=== PATIENT | female | born 1945 | race African-American/Black ===

== ENCOUNTER 2017-01-08 12:45 | Emergency (ER) | payer MEDICARE ==
[2017-01-08 14:17] LABS: Hematocrit 37.8 % (36.0-47.0); Mean Platelet Volume 8.5 fL (7.4-10.4); Red Blood Cell (RBC) Count 3.31 mill/uL (4.20-5.40); White Blood Cell (WBC) Count 3.1 thou/uL (4.8-10.8)
[2017-01-08 14:34] LABS: ALT (SGPT) 17 U/L (8-55); AST (SGOT) 29 U/L (5-34); Alkaline Phosphatase 75 U/L (40-150); Anion Gap 13 mmol/L (10-20); BUN (Urea Nitrogen) 10 mg/dL (9.8-20.1); Bilirubin, Total 0.5 mg/dL (0.2-1.2); Calc. Creatinine Clearance 0 mL/min (70-130); Calcium 9.9 mg/dL (7.8-10.44); Carbon Dioxide 31 mmol/L (23-31); Chloride 103 mmol/L (98-107); Estimated GFR-MDRD Greater than 90; Globulin 3.6 g/dL (2.4-3.5); Lipase 40 U/L (8-78); Protein, Total 7.7 g/dL (6.0-8.3)
[2017-01-08 14:35] LABS: #Lymphocytes 1.4 thou/uL (1.20-3.40); #Monocytes 0.2 thou/uL (0.11-0.59); #Neutrophils 1.5 thou/uL (1.40-6.50); %Basophils 0.1 % (0.0-1.0); %Eosinophils 0.2 % (0.0-10.0); %Lymphocytes 44.4 % (21.0-51.0); %Monocytes 6.7 % (0.0-10.0)
[2017-01-08 14:36] LABS: Macrocytosis SLIGHT = 6-15 cells (100X) (0-5/hpf)
[2017-01-08] MEDS ORDERED: Ondansetron ODT 4 MG TAB ONE (14:36)
[2017-01-08 14:38] LABS: Troponin I Less than 0.010 ng/mL (< 0.028)
[2017-01-08 14:54] LABS: Bilirubin Negative (Negative); Blood, Urine Negative (Negative); Glucose, Urine (Dipstick) Negative (Negative); Ketone, Urine Negative (Negative); Nitrite Negative (Negative); Protein, Urine (Dipstick) Negative (Neg-Trace); Urobilinogen 0.2 mg/dL (0.2-1.0)
--- NOTE | 2017-01-08 16:18 | CT ---
CT ABDOMEN AND PELVIS 01/08/17 HISTORY: Abdominal pain. PO contrast was given. IV contrast was not given. Contrast enhanced CT images of abdomen and pelvis after the administration of oral contrast was given. Comparison made to previous exam from 02/05/16. The patient is complaining of diffuse abdominal pain. The lung bases are un remarkable. No evidence of free intraperitoneal air seen. The liver and spleen demonstrate no definite evidence of abnormalities. The exam is limited due to the fact that IV contrast was not given. A small hiatal hernia is seen. Left adrenal enlargement is again seen unchanged since the previous comparison CT. The right adrenal gland is unremarkable. The kidneys are unremarkable. The abdominal aorta is unremarkable. Pelvic surgical clips seen surrounding the right and left iliac arteries. Some moderately dilated loops of small bowel are seen but no definite evidence of high grade obstruc tion. Some air fluid level seen in the small bowel. A large amount of stool is seen in the colon wit h contrast going all the way to the terminal ileum and ileocecal valve region. Could this patient heard ve a partial functional obstruction due to the large amount of stool in the colon? Multilevel lumbar degenerative changes also seen. IMPRESSION: 1. Large amount of stool in the colon with some mild to moderate small bowel dilatation and cipriano e air fluid levels seen in the small bowel. 2. Left adrenal lesion. 3. Hiatal hernia. 4. Multilevel lumbar degenerative changes. POS: [facility]
[2017-01-08] MEDS ORDERED: Lidocaine Viscous Sol 2% 15 ml UD Cup ONE (17:47)
[2017-01-08] MEDS ORDERED: Fleet Enema 133 ML BOT FS SCH (18:15)
== END 2017-01-08 19:10 | disposition home or self-care (01) ==
LOC: ERS 12:45
DX: K59.00 Constipation, unspecified (principal); I11.0 Hypertensive heart disease with heart failure; I50.9 Heart failure, unspecified; E11.9 Type 2 diabetes mellitus without complications; E78.5 Hyperlipidemia, unspecified; Z85.42 Personal history of malignant neoplasm of other parts of uterus; F41.9 Anxiety disorder, unspecified; Z79.82 Long term (current) use of aspirin; Z79.899 Other long term (current) drug therapy
CPT/HCPCS: 74176; 80053; 81003; 82553; 83605; 83690; 84484; 85025; 87086; 93005; Q0162

== ENCOUNTER 2017-04-17 11:52 | Emergency (ER) | payer MEDICARE ==
[2017-04-17 12:47] LABS: PTT 28.5 SEC (22.9-36.1); Prothrombin Time 13.7 SEC (12.0-14.7)
[2017-04-17 12:49] LABS: Hemoglobin 11.4 g/dL (12.0-16.0); Mean Corpuscular HGB CONC 33.1 g/dL (32.0-36.0); Mean Corpuscular Hemoglobin 36.3 pg (27.0-31.0); Mean Platelet Volume 8.3 fL (7.4-10.4); Platelet Count 173 thou/uL (130-400); RBC Distribution Width 12.9 % (11.5-14.5); Red Blood Cell (RBC) Count 3.15 mill/uL (4.20-5.40); White Blood Cell (WBC) Count 3.2 thou/uL (4.8-10.8)
[2017-04-17 12:57] LABS: ALT (SGPT) 22 U/L (8-55); AST (SGOT) 32 U/L (5-34); Albumin 4.1 g/dL (3.4-4.8); Alkaline Phosphatase 68 U/L (40-150); Anion Gap 12 mmol/L (10-20); BUN (Urea Nitrogen) 11 mg/dL (9.8-20.1); Bilirubin, Total 0.3 mg/dL (0.2-1.2); Calc. Creatinine Clearance 0 mL/min (70-130); Calcium 10.1 mg/dL (7.8-10.44); Carbon Dioxide 30 mmol/L (23-31); Chloride 105 mmol/L (98-107); Estimated GFR-MDRD 87; Globulin 3.4 g/dL (2.4-3.5); Glucose 113 mg/dL (83-110); Potassium 3.7 mmol/L (3.5-5.1); Protein, Total 7.5 g/dL (6.0-8.3); Sodium 143 mmol/L (136-145)
[2017-04-17 13:05] LABS: Lymphocytes 56 % (21-51); MDiff Complete? YES; Macrocytosis SLIGHT = 6-15 cells (100X) (0-5/hpf); Monocytes 7 % (0-10); Neutrophil 37 % (42-75); PLT Morphology Comment Appears Adequate; Polychromasia SLIGHT = 2-3 cells (100X) (0-2/hpf)
== END 2017-04-17 13:41 | disposition home or self-care (01) ==
LOC: SCSER 11:52
DX: R04.0 Epistaxis (principal); I11.0 Hypertensive heart disease with heart failure; I50.9 Heart failure, unspecified; E11.9 Type 2 diabetes mellitus without complications; E78.5 Hyperlipidemia, unspecified; F41.9 Anxiety disorder, unspecified; Z79.82 Long term (current) use of aspirin; Z85.42 Personal history of malignant neoplasm of other parts of uterus; Z79.899 Other long term (current) drug therapy
CPT/HCPCS: 36415; 80053; 85025; 85610; 85730; 99283

== ENCOUNTER 2017-09-27 11:12 | Emergency (ER) | payer MEDICARE ==
[2017-09-27 12:09] LABS: Troponin I Less than 0.010 ng/mL (< 0.028)
[2017-09-27 12:24] LABS: ALT (SGPT) 17 U/L (8-55); AST (SGOT) 36 U/L (5-34); Albumin 4.3 g/dL (3.4-4.8); Alkaline Phosphatase 68 U/L (40-150); Anion Gap 15 mmol/L (10-20); BUN (Urea Nitrogen) 14 mg/dL (9.8-20.1); Bilirubin, Total 0.5 mg/dL (0.2-1.2); CK (CPK) 183 U/L (29-168); Calc. Creatinine Clearance 0 mL/min (70-130); Calcium 10.2 mg/dL (7.8-10.44); Carbon Dioxide 26 mmol/L (23-31); Chloride 103 mmol/L (98-107); Estimated GFR-MDRD 85; Globulin 3.4 g/dL (2.4-3.5); Glucose 158 mg/dL (83-110); Lipase 51 U/L (8-78); Potassium 3.8 mmol/L (3.5-5.1); Protein, Total 7.7 g/dL (6.0-8.3); Sodium 140 mmol/L (136-145)
[2017-09-27 12:28] LABS: #Lymphocytes 1.4 thou/uL (1.20-3.40); #Monocytes 0.2 thou/uL (0.11-0.59); #Neutrophils 1.6 thou/uL (1.40-6.50); %Basophils 0.9 % (0.0-1.0); %Eosinophils 0.5 % (0.0-10.0); %Lymphocytes 41.6 % (21.0-51.0); %Monocytes 7.3 % (0.0-10.0); %Neutrophils 49.8 % (42.0-75.0); Hemoglobin 11.8 g/dL (12.0-16.0); MDiff Complete? YES; Macrocytosis MODERATE=16-30 cells (100X) (0-5/hpf); Mean Corpuscular HGB CONC 33.1 g/dL (32.0-36.0); Mean Corpuscular Hemoglobin 36.9 pg (27.0-31.0); Mean Platelet Volume 9.2 fL (7.4-10.4); PLT Morphology Comment Appears Adequate; Platelet Count 155 thou/uL (130-400); RBC Distribution Width 13.6 % (11.5-14.5); White Blood Cell (WBC) Count 3.3 thou/uL (4.8-10.8)
--- NOTE | 2017-09-27 13:53 | RAD ---
PORTABLE CHEST: Date: 09/27/17 HISTORY: Syncope. FINDINGS: Lungs are clear. No infiltrate or vascular congestion. Heart and mediastinum unremarkable. No change from prior chest film of 07/18/16. IMPRESSION: No acute process. POS: [facility]
== END 2017-09-27 13:50 | disposition home or self-care (01) ==
LOC: ERS 11:12
DX: R53.1 Weakness (principal); F03.90 Unspecified dementia, unspecified severity, without behavioral disturbance, psychotic disturbance, mood disturbance, and anxiety; Z91.14 Patient's other noncompliance with medication regimen; E78.5 Hyperlipidemia, unspecified; I25.2 Old myocardial infarction; I11.0 Hypertensive heart disease with heart failure; I50.9 Heart failure, unspecified; F41.9 Anxiety disorder, unspecified; Z79.899 Other long term (current) drug therapy; Z79.82 Long term (current) use of aspirin
CPT/HCPCS: 71045; 80053; 82010; 82550; 82553; 83690; 83880; 84484; 85025; 93005; 96360; 96361

== ENCOUNTER 2017-10-17 11:49 | Observation (INO) | payer MEDICARE ==
[2017-10-17] MEDS ORDERED: Furosemide 40 MG/4 ML VIAL ONE (12:12)
[2017-10-17] MEDS ORDERED: Nitroglycerin 2% Ointment 1 INCH/1 GM Packet ONE (12:12)
[2017-10-17 12:38] LABS: #Lymphocytes 1.2 thou/uL (1.20-3.40); #Monocytes 0.2 thou/uL (0.11-0.59); #Neutrophils 1.8 thou/uL (1.40-6.50); %Basophils 0.4 % (0.0-1.0); %Eosinophils 0.3 % (0.0-10.0); %Lymphocytes 36.7 % (21.0-51.0); %Monocytes 7.5 % (0.0-10.0); %Neutrophils 55.2 % (42.0-75.0); Mean Corpuscular HGB CONC 34.9 g/dL (32.0-36.0); Mean Corpuscular Hemoglobin 38.6 pg (27.0-31.0); Mean Platelet Volume 8.6 fL (7.4-10.4); Platelet Count 176 thou/uL (130-400); RBC Distribution Width 13.3 % (11.5-14.5); Red Blood Cell (RBC) Count 3.11 mill/uL (4.20-5.40); White Blood Cell (WBC) Count 3.2 thou/uL (4.8-10.8)
--- NOTE | 2017-10-17 12:41 | RAD ---
AP VIEW OF THE CHEST: INDICATION: Nausea and vomiting with dyspnea. IMPRESSION: No acute cardiopulmonary abnormality. The examination has not appreciably changed from the compariso n dated 09/27/17. POS: [facility]
[2017-10-17 12:55] LABS: ALT (SGPT) 18 U/L (8-55); AST (SGOT) 39 U/L (5-34); Albumin 4.2 g/dL (3.4-4.8); Alkaline Phosphatase 67 U/L (40-150); Anion Gap 15 mmol/L (10-20); BUN (Urea Nitrogen) 5 mg/dL (9.8-20.1); Bilirubin, Total 0.4 mg/dL (0.2-1.2); CK (CPK) 182 U/L (29-168); Calc. Creatinine Clearance 0 mL/min (70-130); Carbon Dioxide 28 mmol/L (23-31); Chloride 102 mmol/L (98-107); Estimated GFR-MDRD 85; Globulin 3.5 g/dL (2.4-3.5); Glucose 131 mg/dL (83-110); Lipase 39 U/L (8-78); Protein, Total 7.7 g/dL (6.0-8.3); Sodium 141 mmol/L (136-145)
[2017-10-17 12:58] LABS: CKMB 4.4 ng/mL (0-6.6); Troponin I Less than 0.010 ng/mL (< 0.028)
[2017-10-17 13:07] LABS: Bilirubin Negative (Negative); Blood, Urine Negative (Negative); Clarity CLEAR (Clear); Glucose, Urine (Dipstick) Negative (Negative); Leukocyte Negative (Negative); Nitrite Negative (Negative); Protein, Urine (Dipstick) Negative (Neg-Trace); Specific Gravity, Urine 1.004 (1.002-1.036); Urobilinogen 0.2 mg/dL (0.2-1.0); pH, Urine 7.5 (5.0-9.0)
[2017-10-17] MEDS ORDERED: Enoxaparin Sodium 80 MG/0.8 ML SYRINGE ONE (13:36)
--- NOTE | 2017-10-17 14:47 | RAD ---
ABDOMEN 1 VIEW SERIES KUB: Two views provided. INDICATION: Nausea, short of breath. FINDINGS: There is a nonspecific bowel gas pattern. Air density is seen within the small bowel and colon and d oes overlie the distal bowel of the low central pelvis. There are multiple metallic clips of the julia ateral lower abdomen, and pelvis. Evaluation is limited on this supine positioning, for detection of free air. The imaged lung bases reveal no consolidation. There is osseous degenerative change. IMPRESSION: Nonspecific bowel gas pattern. POS: [facility]
[2017-10-17 15:06] VITALS: BMI 31.4
[2017-10-17 15:50] LABS: Troponin I Less than 0.010 ng/mL (< 0.028)
[2017-10-17 18:43] LABS: Troponin I Less than 0.010 ng/mL (< 0.028)
[2017-10-17] MEDS ORDERED: Acetaminophen ER (8hr) 650 MG TAB PO PRN (18:51)
--- NOTE | 2017-10-17 20:04 | HP ---
DATE OF ADMISSION: 10/17/2017 CHIEF COMPLAINT: Shortness of breath on exertion, recurrent. HISTORY OF PRESENT ILLNESS: The patient is a 72-year-old -[place] female who is admitted to the hospital because of recurrent shortness of breath. She had few episodes similar to this one. A couple of last episodes came with some nausea, no vomiting, and some general abdominal discomfort. S he denied any fever or chills. She denied any cough. She denied any chest pain. Her primary care p [place] is Dr. Maria T Castillo. Her surrogate decision maker is her son, Miguel Castillo. She came to the emergency room looking for some medical attention. She had elevated D-dimer and she is admitt ed to the hospital for further evaluation of her shortness of breath. She is not hypoxic. PAST MEDICAL HISTORY: Positive for, 1. Diabetes mellitus type 2. 2. Dyslipidemia. 3. Hypertension. 4. Congestive heart failure. 5. Suspected coronary artery disease. 6. Uterine cancer. 7. Dementia. PAST SURGICAL HISTORY: 1. Small-bowel obstruction surgery. 2. Hysterectomy. 3. Tubal ligation and bilateral implants. SOCIAL HISTORY: She denies any alcohol use, cigarette smoking or illicit drug use. FAMILY HISTORY: She does not remember that her parents had any medical issues. CODE STATUS: FULL. ALLERGIES: IODINE, DYE. CURRENT MEDICATIONS: She is not able to recall them. PHYSICAL EXAMINATION: GENERAL: She is not in any distress during my visit. VITAL SIGNS: Blood pressure is 165/84, pulse is 93, temperature is 98.7 and pulse oximetry is 96% on room air. HEENT: Atraumatic, normocephalic. Eyes are PERRLA. Sclerae nonicteric. Oral mucosa is moist. NECK: Supple. She has multiple bad carious teeth. Thyroid is not palpable. LUNGS: Clear. HEART: S1, S2 normal, no S3, no S4. ABDOMEN: Soft and nontender. Bowel sounds are present, no organomegaly. EXTREMITIES: No clubbing, cyanosis or edema. NEUROLOGIC: She is alert and oriented x4. There is not any sensorimotor deficit present. Cranial n erves are intact. LABORATORY DATA AND IMAGING DATA: Showed white count of 3.2, hemoglobin of 12.0, hematocrit 34.4, pl atelet count is 176,000. D-dimer is 0.87. Normal electrolytes, BUN 5, creatinine 0.8, glucose 131, AST 39, creatinine kinase 182. Urinalysis within normal limits. EKG did not show any abnormalities. It is in normal sinus rhythm at 83 beats per minute, no ischemic changes. Chest x-ray did not reve al any abnormalities acutely. IMPRESSION: 1. Recurrent shortness of breath with some nausea of unclear etiology. The patient is going to have a V/Q scan and a Cardiology evaluation whether she needs to have stress test. 2. Chronic leukopenia of unclear significance. Her blood work from 05/2016 shows white count at 3.4 , today is 3.2. 3. Diabetes mellitus type 2, well controlled. 4. Hypertension. Her blood pressure at the time of evaluation is elevated. She will need probably adjustment of her meds once we know what they are. 5. History of congestive heart failure. 6. Dyslipidemia. 7. Uterine cancer. 8. Suspected coronary artery disease. PLAN: Admission for observation. Condition is fair. Activity: Bed rest and bathroom privileges. IV Hep-Lock with 1800 ADA diet. Echocardiogram, V/Q scan. Cardiology consultation. Cardiac enzymes q.4 x2. Obtained home meds and DVT prophylaxis with 40 mg of Lovenox.
--- NOTE | 2017-10-17 23:03 | CON ---
DATE OF CONSULTATION: 10/17/2017 HISTORY OF PRESENT ILLNESS: Ms. Granger is a 72-year-old patient of Dr. Brendan Campa. The patient heard s a long history of shortness of breath. The patient's daughter states that she goes to the emergenc y room every 4-6 weeks, primarily at [facility] [place] for shortness of breath and the test will come b ack okay, so she is released. At this institution, she came here and she was brought in for observat ion. The patient is doing okay now. PAST MEDICAL HISTORY: She has a history of shortness of breath chronic or intermittent according to the patient's daughter, also has a long history of nausea. MEDICATIONS: At home, she is on metoprolol, atorvastatin, aspirin and amlodipine. PHYSICAL EXAMINATION: GENERAL: This is a pleasant 72-year-old woman in no distress. VITAL SIGNS: Blood pressure 147/64, pulse 80s, regular. LUNGS: Clear. CARDIAC: Normal S1, normal S2. There is a 2/6 systolic murmur at the right upper sternal border and left upper sternal border. No diastolic murmur, no S3. ABDOMEN: Soft and nontender. EXTREMITIES: No edema. LABORATORY DATA: TSH is normal. Troponin levels are negative. BNP is 10. Potassium is 4.2. IMAGING DATA: Chest x-ray does not show any evidence of heart failure. Echocardiogram showed normal left ventricular function with aortic sclerosis, but no stenosis. CONCLUSION: Appears stable from a cardiac status. Had stress testing done on 2016 showing no ischem ia. Apparently, CT pulmonary angiogram could not be done to assess for the possibility of pulmonary embolism. The patient ____ having ventilation perfusion scan that could be released home to follow u p as an outpatient with Dr. Campa.
[2017-10-18 06:07] LABS: #Lymphocytes 1.2 thou/uL (1.20-3.40); #Monocytes 0.2 thou/uL (0.11-0.59); #Neutrophils 1.6 thou/uL (1.40-6.50); %Basophils 0.2 % (0.0-1.0); %Eosinophils 0.7 % (0.0-10.0); %Lymphocytes 39.4 % (21.0-51.0); %Monocytes 6.4 % (0.0-10.0); %Neutrophils 53.3 % (42.0-75.0); Hemoglobin 11.9 g/dL (12.0-16.0); Mean Corpuscular HGB CONC 34.2 g/dL (32.0-36.0); Mean Corpuscular Hemoglobin 38.2 pg (27.0-31.0); Mean Platelet Volume 8.4 fL (7.4-10.4); Platelet Count 177 thou/uL (130-400); RBC Distribution Width 13.4 % (11.5-14.5); Red Blood Cell (RBC) Count 3.11 mill/uL (4.20-5.40); White Blood Cell (WBC) Count 3.1 thou/uL (4.8-10.8)
[2017-10-18 06:16] LABS: Anion Gap 12 mmol/L (10-20); BUN (Urea Nitrogen) 4 mg/dL (9.8-20.1); Calc. Creatinine Clearance 84 mL/min (70-130); Calcium 9.9 mg/dL (7.8-10.44); Carbon Dioxide 33 mmol/L (23-31); Chloride 98 mmol/L (98-107); Estimated GFR-MDRD 89; Glucose 122 mg/dL (83-110); Potassium 3.5 mmol/L (3.5-5.1); Sodium 139 mmol/L (136-145)
[2017-10-18] MEDS ORDERED: Atorvastatin Calcium 10 MG TAB PO SCH (09:00)
[2017-10-18] MEDS ORDERED: Metoprolol Tartrate 25 MG TAB PO SCH (09:00)
[2017-10-18] MEDS ORDERED: Enoxaparin Sodium 40 MG/0.4 ML SYRINGE SC SCH (09:00)
[2017-10-18] MEDS ORDERED: Amlodipine 5 MG TAB PO SCH (09:00)
[2017-10-18] MEDS ORDERED: Aspirin 81 mg Enteric Coated Tablet PO SCH (09:00)
--- NOTE | 2017-10-18 10:39 | PRG ---
DATE OF SERVICE: 10/18/2017. SUBJECTIVE: Ms. Granger is breathing fine today, no complaints. OBJECTIVE: VITAL SIGNS: Blood pressure 140/60, pulse 68. LUNGS: Clear. CARDIAC: Normal S1, normal S2. ASSESSMENT: 1. Shortness of breath of unclear etiology. 2. Recent negative stress test done by Dr. Campa in the office in 2016. PLAN: The patient will have a ventilation perfusion scan done today. If it is okay, she will be rel eased home.
[2017-10-18] MEDS ORDERED: Polyethylene Glycol 3350 17 GM Packet PO SCH (11:30)
--- NOTE | 2017-10-18 14:57 | NM ---
VQ SCAN: INDICATION: Dyspnea. COMPARISON: Prior chest radiograph dated 10/17/17 at 12:13 p.m. RADIOPHARMACEUTICAL: 14.9 mCi Xenon 133 inhaled and 6.5 mCi Technetium 99m-MAA IV. FINDINGS: Ventilator examination demonstrates no focal defects. The examination demonstrates no large pleural- based perfusion defect. IMPRESSION: Low probability VQ scan. POS: [facility]
[2017-10-18 15:59] VITALS: BP 163/70; TEMP 98.3
--- NOTE | 2017-10-19 00:23 | DIS ---
DATE OF ADMISSION: 10/17/2017 DATE OF DISCHARGE: 10/18/2017 DIAGNOSES AT THE TIME OF DISCHARGE: 1. Shortness of breath of unclear etiology with negative stress test in 2017 by insulating machine operator, Dr. Koko freitas, and with negative V/Q scan done during this hospitalization. 2. Chronic leukopenia of unclear significance. 3. Diabetes mellitus type 2, well controlled. 4. Hypertension. 5. History of congestive heart failure. 6. Dyslipidemia. 7. Uterine cancer. 8. Suspected coronary artery disease, but with negative relatively recent stress test. HOSPITAL COURSE: The patient is a 72-year-old -[place] female with complaints of shortness o f breath on exertion. She had a few episodes similar to this one. Sometimes she gets nausea, no vom iting. Sometimes there is no nausea, only just shortness of breath. She denied any fever or chills. Denied any cough. She denied any chest pain. She was seen by emergency room physician, who ordere d D-dimers on her. The level was elevated slightly at 0.87, so decision was made about admitting her for observation for V/Q scan, which was done and it did not show any abnormalities and it was low pr obability for PE. The patient's EKG did not show any abnormalities. Her white count was slightly on the lower side at 3.2. The rest of chemistry was within normal limits. Chest x-ray did not show an y abnormalities and the patient was seen by Dr. Buitrago, who recommended V/Q scan. The patient is doi ng well today. DIET: She is discharged home on heart healthy diet. ACTIVITY: As tolerated. MEDICATIONS AT THE TIME OF DISCHARGE: Aspirin 81 mg once a day, metoprolol tartrate 25 mg once a day , atorvastatin 10 mg once a day, acetaminophen 650 p.r.n., amlodipine 2.5 mg once a day. FOLLOWUP: She is going to follow up with Dr. Castillo as her primary care physician in about 1 week and this discharge is less than 30 minutes.
[2017-10-19] MEDS ORDERED: Polyethylene Glycol 3350 17 GM Packet PO SCH (09:00)
--- NOTE | 2017-10-22 12:21 | EKG ---
Test Reason : SOB Blood Pressure : / mmHG Vent. Rate : 083 BPM Atrial Rate : 083 BPM P-R Int : 164 ms QRS Dur : 084 ms QT Int : 362 ms P-R-T Axes : 055 013 059 degrees QTc Int : 425 ms Normal sinus rhythm Normal ECG Confirmed by LAN FONG, RONALD ([id number]), research editor SERAFIN ALLISON ([id number]) on 10/22/2017 12:21:21 PM Referred By: Confirmed By:RONALD MONTENEGRO MD
== END 2017-10-18 17:44 | disposition home or self-care (01) ==
LOC: ERS 11:49 → 2SW 14:58
PROVIDERS: ADMIT Internal Medicine; ATTEND Internal Medicine
DX: R06.02 Shortness of breath (principal); D72.819 Decreased white blood cell count, unspecified; E11.9 Type 2 diabetes mellitus without complications; E78.5 Hyperlipidemia, unspecified; I11.0 Hypertensive heart disease with heart failure; I50.9 Heart failure, unspecified; F03.90 Unspecified dementia, unspecified severity, without behavioral disturbance, psychotic disturbance, mood disturbance, and anxiety; Z85.42 Personal history of malignant neoplasm of other parts of uterus; Z91.041 Radiographic dye allergy status; Z91.018 Allergy to other foods; Z79.82 Long term (current) use of aspirin; Z79.899 Other long term (current) drug therapy
CPT/HCPCS: 71045; 74018; 78582; 80048; 81003; 82550; 82553; 82962; 83690; 83880; 84484 ×2; 85025; 85379; 93005; 93306; 96372 ×2; 96374; 99285; A9540; A9558; G0378; 36415; 36416; 80053; 84443; J1650; J1940

== ENCOUNTER 2017-11-19 08:44 | Emergency (ER) | payer MEDICARE ==
[2017-11-19 09:57] LABS: #Lymphocytes 1.4 thou/uL (1.20-3.40); #Monocytes 0.2 thou/uL (0.11-0.59); #Neutrophils 1.4 thou/uL (1.40-6.50); %Basophils 0.2 % (0.0-1.0); %Eosinophils 0.2 % (0.0-10.0); %Lymphocytes 46.1 % (21.0-51.0); %Monocytes 5.2 % (0.0-10.0); %Neutrophils 48.3 % (42.0-75.0); Hemoglobin 12.1 g/dL (12.0-16.0); Mean Corpuscular HGB CONC 34.1 g/dL (32.0-36.0); Mean Corpuscular Hemoglobin 38.3 pg (27.0-31.0); Mean Platelet Volume 9.1 fL (7.4-10.4); Platelet Count 168 thou/uL (130-400); RBC Distribution Width 13.6 % (11.5-14.5); Red Blood Cell (RBC) Count 3.17 mill/uL (4.20-5.40)
[2017-11-19] MEDS ORDERED: Ondansetron HCl/PF 4 MG/2 ML Vial ONE (10:02)
[2017-11-19] MEDS ORDERED: Morphine 4 MG/ML VIAL ONE (10:02)
[2017-11-19 10:10] LABS: ALT (SGPT) 18 U/L (8-55); AST (SGOT) 30 U/L (5-34); Albumin 4.3 g/dL (3.4-4.8); Alkaline Phosphatase 65 U/L (40-150); Anion Gap 15 mmol/L (10-20); BUN (Urea Nitrogen) 7 mg/dL (9.8-20.1); Bilirubin, Total 0.6 mg/dL (0.2-1.2); Calc. Creatinine Clearance 0 mL/min (70-130); Calcium 10.2 mg/dL (7.8-10.44); Carbon Dioxide 25 mmol/L (23-31); Chloride 105 mmol/L (98-107); Estimated GFR-MDRD 86; Globulin 3.3 g/dL (2.4-3.5); Glucose 181 mg/dL (83-110); Lipase 45 U/L (8-78); Potassium 3.4 mmol/L (3.5-5.1); Protein, Total 7.6 g/dL (6.0-8.3); Sodium 142 mmol/L (136-145)
[2017-11-19 10:17] LABS: CKMB 2.1 ng/mL (0-6.6); Troponin I Less than 0.010 ng/mL (< 0.028)
[2017-11-19 10:41] LABS: Bilirubin Negative (Negative); Blood, Urine Negative (Negative); Clarity CLEAR (Clear); Glucose, Urine (Dipstick) Negative (Negative); Leukocyte Negative (Negative); Nitrite Negative (Negative); Protein, Urine (Dipstick) Negative (Neg-Trace); Specific Gravity, Urine 1.005 (1.002-1.036); Urobilinogen 0.2 mg/dL (0.2-1.0)
--- NOTE | 2017-11-19 12:12 | CT ---
CT ABDOMEN AND PELVIS WITHOUT IV CONTRAST: Date: 11/19/17 HISTORY: Worsening abdominal pain with onset of symptoms 1 day ago. History of small bowel obstruction. COMPARISON: 01/08/17. FINDINGS: Vascular calcifications are seen in the coronary arteries, as well as involving the abdominal aorta a nd iliac arteries. There is a noncalcified pulmonary nodule right lower lobe measuring 6.0 mm. Tiny pleural based nodula r density at the lateral aspect of right lung base along the major fissure is again present and stabl e. Pulmonary nodule at the right lung base was not seen on the prior exam, but this area was incomple tely imaged on the prior study. Degenerative changes are seen in the spine, but no lytic or sclerotic osseous lesions are appreciated . There is a left adrenal nodule measuring approximately 3.0 cm, which is stable from the prior exam. T his does demonstrate an attenuation coefficient most suggestive of an adrenal adenoma. A left adrenal lesion has been present since study in 2008, although left adrenal lesion is slightly larger in size since that exam. A few punctate splenic granulomata are present. The liver, pancreas, right adrenal glands, and bilateral kidneys, as well as urinary bladder, demonst rate a grossly normal nonenhanced CT appearance. Postsurgical changes related to hysterectomy are noted. Multiple surgical clips are seen in the pelvis along the iliac chains bilaterally. Vascular calcifications seen in abdominal aorta and involving the iliac arteries. A few scattered colonic diverticula are seen. There is contrast seen throughout the small bowel to the level of the terminal ileum. While there are a few dilated loops of small bowel measuring up to 3.5 cm, these focal areas of dilatation may be re lated to areas of peristalsis as opposed to abnormally dilated loops of bowel related to small bowel obstruction. There are no definitive findings to suggest a small bowel obstruction. No free fluid or fluid collection seen in the abdomen or pelvis. IMPRESSION: 1. There are scattered areas of mildly dilated loops of small bowel, but contrast is seen throughout the small bowel to the level of the terminal ileum, and these findings are probably attributable to peristalsis as opposed to partial small bowel obstruction. However, if patient's symptoms persist, fo llow-up evaluation can be performed. 2. Pulmonary nodule right lung base measuring 6.0 mm. Follow-up CT thorax is recommended. 3. Left adrenal adenoma. 4. Hysterectomy with multiple surgical clips seen in the pelvis. CODE LN. POS: [facility]
--- NOTE | 2017-11-21 16:57 | EKG ---
Test Reason : ABD PAIN Blood Pressure : / mmHG Vent. Rate : 076 BPM Atrial Rate : 076 BPM P-R Int : 154 ms QRS Dur : 086 ms QT Int : 380 ms P-R-T Axes : 064 016 061 degrees QTc Int : 427 ms Normal sinus rhythm Normal ECG Confirmed by JUAN PABLO BEATTY DO ([id number]), editor in chief SERAFIN ALLISON ([id number]) on 11/21/2017 4:56:29 PM Referred By: Confirmed By:JUAN PABLO BEATTY DO
== END 2017-11-19 13:25 | disposition home or self-care (01) ==
LOC: ERS 08:44
DX: R10.13 Epigastric pain (principal); I25.2 Old myocardial infarction; I11.0 Hypertensive heart disease with heart failure; I50.9 Heart failure, unspecified; F03.90 Unspecified dementia, unspecified severity, without behavioral disturbance, psychotic disturbance, mood disturbance, and anxiety; F41.9 Anxiety disorder, unspecified
CPT/HCPCS: 74176; 80053; 81003; 82553; 83690; 84484; 85025; 93005; 96374; 96375; J2270; J2405

== ENCOUNTER 2018-08-11 08:30 | Outpatient (CLI) | payer MEDICARE ==
[2018-08-11 10:06] LABS: Estimated GFR-MDRD - POC Greater than 90
--- NOTE | 2018-08-11 11:54 | MRI ---
MRI BRAIN WITH AND WITHOUT IV CONTRAST: Date: 08/11/18 HISTORY: Alzheimer's disease, unspecified. FINDINGS: No restricted diffusion is seen. There is ventricular sulcal prominence due to cortical atrophy. Ther e are foci of T2 prolongation in the periventricular and subcortical white matter, consistent with ch ronic small vessel ischemic disease. No evidence of infarct, hemorrhage, mass, midline shift, or abno rmal extra-axial fluid collections are seen. The basilar cisterns are patent. No abnormal postcontras t enhancement is noted. There is minimal mucosal disease in the paranasal sinuses. Fluid is noted in the mastoid air cells bilaterally. There is fluid in the mastoid air cells. IMPRESSION: 1. Cortical atrophy. 2. Chronic small vessel ischemic disease. 3. No evidence of acute intracranial process or mass. 4. Mastoid effusions. POS: [facility]
== END 2018-08-11 08:31 | disposition home or self-care (01) ==
LOC: SCSMRI 08:30
PROVIDERS: ATTEND Psychiatry & Neurology Neurology
DX: G30.9 Alzheimer's disease, unspecified (principal); G31.9 Degenerative disease of nervous system, unspecified; I67.82 Cerebral ischemia; H74.8X3 Other specified disorders of middle ear and mastoid, bilateral
CPT/HCPCS: 70553; 82565

== ENCOUNTER 2019-08-31 09:27 | Day surgery (SDC) | payer MEDICARE ==
[2019-08-30 14:05] VITALS: BMI 33.9
[2019-08-31 10:19] LABS: PTT 26.4 sec (22.9-36.1); Prothrombin Time 13.1 sec (12.0-14.7)
[2019-08-31 11:56] VITALS: BP 163/58; TEMP 98.4
--- NOTE | 2019-08-31 16:42 | CT ---
CT GUIDED RIGHT ILIAC BONE MARROW ASPIRATION AND BIOPSY: CLINICAL HISTORY: Leukopenia. Abnormal laboratory values.. PROCEDURE: The procedure including the risks and complications were explained to the patient, and informed conse nt was obtained. The patient was placed on the CT scan table in the prone position. Noncontrasted CT images were obtained through the pelvis. An area was marked overlying the RIGHT félix c bone, and the area was meticulously prepped and draped in usual sterile fashion. The skin and subcutaneous tissues were infiltrated with buffered 1% lidocaine for local anesthesia. After a small skin incision was made, an 11-gauge needle was advanced and positioning was confirmed w ith axial CT images. Approximately 10 milliliters of bone marrow aspirate was obtained. The needle was then further advanced, and a bone marrow biopsy was performed. The needle was removed, and hemost asis was achieved with direct pressure. The patient tolerated the procedure well and without immediate complication. The patient was transported to radiology nurses holding area for further gale toring prior to discharge. IMPRESSION: Technically successful percutaneous bone marrow aspiration and biopsy. Pathology results are pending.
--- NOTE | 2019-09-01 16:03 | CT ---
CT GUIDED RIGHT ILIAC BONE MARROW ASPIRATION AND BIOPSY: CLINICAL HISTORY: Leukopenia. Abnormal laboratory values.. PROCEDURE: The procedure including the risks and complications were explained to the patient, and informed conse nt was obtained. The patient was placed on the CT scan table in the prone position. Noncontrasted CT images were obtained through the pelvis. An area was marked overlying the RIGHT félix c bone, and the area was meticulously prepped and draped in usual sterile fashion. The skin and subcutaneous tissues were infiltrated with buffered 1% lidocaine for local anesthesia. After a small skin incision was made, an 11-gauge needle was advanced and positioning was confirmed w ith axial CT images. Approximately 10 milliliters of bone marrow aspirate was obtained. The needle was then further advanced, and a bone marrow biopsy was performed. The needle was removed, and hemost asis was achieved with direct pressure. The patient tolerated the procedure well and without immediate complication. The patient was transported to radiology nurses holding area for further gale toring prior to discharge. IMPRESSION: Technically successful percutaneous bone marrow aspiration and biopsy. Pathology results are pending. Transcribed Date/Time: 09/01/2019 4:03 PM
== END 2019-08-31 12:35 | disposition home or self-care (01) ==
LOC: CT 09:27
PROVIDERS: ATTEND Internal Medicine Medical Oncology
PROC: 07DR3ZX Extraction of Iliac Bone Marrow, Percutaneous Approach, Diagnostic (ICD-10-PCS; principal; 2019-08-31)
PROC: 079T3ZX Drainage of Bone Marrow, Percutaneous Approach, Diagnostic (ICD-10-PCS; 2019-08-31)
PROC: BR2DZZZ Computerized Tomography (CT Scan) of Sacroiliac Joints (ICD-10-PCS; 2019-08-31)
DX: C90.00 Multiple myeloma not having achieved remission (principal); I11.0 Hypertensive heart disease with heart failure; I50.9 Heart failure, unspecified; M19.90 Unspecified osteoarthritis, unspecified site; Z79.82 Long term (current) use of aspirin; Z79.84 Long term (current) use of oral hypoglycemic drugs; Z79.899 Other long term (current) drug therapy; Z88.8 Allergy status to other drugs, medicaments and biological substances; Z91.018 Allergy to other foods; Z91.041 Radiographic dye allergy status
CPT/HCPCS: 20225; 36415; 77012; 85097; 85610; 85730; 88184; 88237; 88264; 88280; 88305; 88311; 88313; 88342

== ENCOUNTER 2019-10-27 11:45 | Day surgery (SDC) | payer MEDICARE ==
[~2019-10-27 11:45] MED LIST: ADMIXTURE FEE CHEMO IVP SCH; Acyclovir 400 mg Tablet PO SCH; BORTEZOMIB IVP SCH; CYCLOPHOSPHAMIDE IVPB SCH; Dexamethasone Sod Phosphate 40 MG in Sodium Chloride 0.9% 50 ML IVPB SCH; SODIUM CHLORIDE 0.9% IVPB SCH
[2019-10-27] MEDS ORDERED: Sodium Chloride 0.9% 20 ML ONE (12:01)
[2019-10-27 12:50] VITALS: BP 139/63; TEMP 98.5
== END 2019-10-27 14:50 | disposition home or self-care (01) ==
LOC: ONC/OP 11:45
PROVIDERS: ATTEND Internal Medicine Medical Oncology
DX: Z51.12 Encounter for antineoplastic immunotherapy (principal); C90.00 Multiple myeloma not having achieved remission; Z88.8 Allergy status to other drugs, medicaments and biological substances; Z91.018 Allergy to other foods; Z91.041 Radiographic dye allergy status
CPT/HCPCS: 96375; 96401; 96413; J1100; J1642; J7050; J9041; J9070

== ENCOUNTER 2019-11-24 11:01 | Day surgery (SDC) | payer MEDICARE ==
[~2019-11-24 11:01] MED LIST changes: +ADMIXTURE FEE CHEMO SC SCH; -Acyclovir 400 mg Tablet PO SCH; +BORTEZOMIB SC SCH; +Dexamethasone Sod Phosphate 20 MG in Sodium Chloride 0.9% 50 ML IVPB SCH
[2019-11-24 11:43] VITALS: BP 128/56; TEMP 98.4
== END 2019-11-24 12:49 | disposition home or self-care (01) ==
LOC: ONC/OP 11:01
PROVIDERS: ATTEND Internal Medicine Medical Oncology
DX: Z51.11 Encounter for antineoplastic chemotherapy (principal); C90.00 Multiple myeloma not having achieved remission; N18.1 Chronic kidney disease, stage 1; Z88.8 Allergy status to other drugs, medicaments and biological substances; Z91.018 Allergy to other foods; Z91.041 Radiographic dye allergy status
CPT/HCPCS: 96401; 96413; J1100; J7050; J9041; J9070

== ENCOUNTER 2019-12-01 11:54 | Day surgery (SDC) | payer MEDICARE ==
[~2019-12-01 11:54] MED LIST changes: -ADMIXTURE FEE CHEMO IVP SCH; -BORTEZOMIB IVP SCH; -Dexamethasone Sod Phosphate 20 MG in Sodium Chloride 0.9% 50 ML IVPB SCH
[2019-12-01] MEDS ORDERED: Sodium Chloride 0.9% 20 ML ONE (12:10)
[2019-12-01] MEDS ORDERED: CYCLOPHOSPHAMIDE IVPB SCH (12:30)
[2019-12-01] MEDS ORDERED: SODIUM CHLORIDE 0.9% IVPB SCH (12:30)
== END 2019-12-01 13:36 | disposition home or self-care (01) ==
LOC: ONC/OP 11:54
PROVIDERS: ATTEND Internal Medicine Medical Oncology
DX: Z51.11 Encounter for antineoplastic chemotherapy (principal); C90.00 Multiple myeloma not having achieved remission; N18.1 Chronic kidney disease, stage 1; Z88.8 Allergy status to other drugs, medicaments and biological substances; Z91.018 Allergy to other foods; Z91.041 Radiographic dye allergy status
CPT/HCPCS: 96367; 96401; 96413; J1100; J7050; J9041; J9070

== ENCOUNTER 2019-12-08 10:35 | Day surgery (SDC) | payer MEDICARE ==
[2019-12-08] MEDS ORDERED: Sodium Chloride 0.9% 20 ML ONE (10:45)
[2019-12-08 12:52] VITALS: BP 148/67; TEMP 97.9
== END 2019-12-08 12:53 | disposition home or self-care (01) ==
LOC: ONC/OP 10:35
PROVIDERS: ATTEND Internal Medicine Medical Oncology
DX: Z51.12 Encounter for antineoplastic immunotherapy (principal); C90.00 Multiple myeloma not having achieved remission; N18.1 Chronic kidney disease, stage 1; Z88.8 Allergy status to other drugs, medicaments and biological substances; Z91.018 Allergy to other foods; Z91.041 Radiographic dye allergy status
CPT/HCPCS: 96367; 96401; 96413; J1100; J7050; J9041; J9070

== ENCOUNTER 2019-12-15 10:24 | Day surgery (SDC) | payer MEDICARE ==
[~2019-12-15 10:24] MED LIST changes: -CYCLOPHOSPHAMIDE IVPB SCH; +Cyclophosphamide 500 MG in Sodium Chloride 0.9% 250 ML 250 ML IVPB SCH; -SODIUM CHLORIDE 0.9% IVPB SCH
== END 2019-12-15 11:24 | disposition home or self-care (01) ==
LOC: ONC/OP 10:24
PROVIDERS: ATTEND Internal Medicine Medical Oncology
DX: Z51.11 Encounter for antineoplastic chemotherapy (principal); C90.00 Multiple myeloma not having achieved remission; N18.1 Chronic kidney disease, stage 1; Z91.018 Allergy to other foods; Z91.041 Radiographic dye allergy status
CPT/HCPCS: 80053; 82248; 83615; 84100; 84165; 84550; J1100; J7050; J9041; J9070

== ENCOUNTER 2019-12-22 10:08 | Day surgery (SDC) | payer MEDICARE ==
[2019-12-22] MEDS ORDERED: Sodium Chloride 0.9% 20 ML ONE (10:14)
== END 2019-12-22 13:26 | disposition home or self-care (01) ==
LOC: ONC/OP 10:08
PROVIDERS: ATTEND Internal Medicine Medical Oncology
DX: Z51.11 Encounter for antineoplastic chemotherapy (principal); C90.00 Multiple myeloma not having achieved remission; N18.1 Chronic kidney disease, stage 1; Z91.018 Allergy to other foods; Z91.041 Radiographic dye allergy status
CPT/HCPCS: 96375; 96401; 96413; J1100

== ENCOUNTER 2019-12-29 10:46 | Day surgery (SDC) | payer MEDICARE | END 2019-12-29 13:55 | disposition home or self-care (01) | LOC: ONC/OP 10:46 | PROVIDERS: ATTEND Internal Medicine Medical Oncology | DX: Z51.11 Encounter for antineoplastic chemotherapy (principal); C90.00 Multiple myeloma not having achieved remission; N18.1 Chronic kidney disease, stage 1; Z88.8 Allergy status to other drugs, medicaments and biological substances; Z91.018 Allergy to other foods; Z91.041 Radiographic dye allergy status | CPT/HCPCS: 96375; 96401; 96413; J1100; J7050; J9041; J9070 ==

== ENCOUNTER 2020-01-05 10:33 | Day surgery (SDC) | payer MEDICARE ==
[~2020-01-05 10:33] MED LIST changes: +CYCLOPHOSPHAMIDE IVPB SCH; -Cyclophosphamide 500 MG in Sodium Chloride 0.9% 250 ML 250 ML IVPB SCH; +SODIUM CHLORIDE 0.9% IVPB SCH
== END 2020-01-05 12:32 | disposition home or self-care (01) ==
LOC: ONC/OP 10:33
PROVIDERS: ATTEND Internal Medicine Medical Oncology
DX: Z51.11 Encounter for antineoplastic chemotherapy (principal); C90.00 Multiple myeloma not having achieved remission; N18.1 Chronic kidney disease, stage 1; Z88.8 Allergy status to other drugs, medicaments and biological substances; Z91.018 Allergy to other foods; Z91.041 Radiographic dye allergy status
CPT/HCPCS: 96401; 96413; J1100; J7050; J9041; J9070

== ENCOUNTER 2020-01-05 13:05 | Outpatient (CLI) | payer MEDICARE ==
--- NOTE | 2020-01-05 13:32 | RAD ---
Exam: XR Tib Fib Rt Leg 2 View HISTORY: Left leg pain from the 2 distal tibia and fibula COMPARISON: None FINDINGS: No acute fracture, dislocation, or other acute osseous abnormality is identified. There are posterior and plantar calcaneal enthesophytes seen with minimal osteophytes at the knee mane nt. IMPRESSION: No acute osseous abnormality is identified.
--- NOTE | 2020-01-05 13:58 | RAD ---
LEFT HIP TWO VIEWS: 01/05/20 HISTORY: Left hip pain. FINDINGS/IMPRESSION: Mild degenerative changes are present. No fracture, dislocation or bony destruction identified. POS: [facility]
--- NOTE | 2020-01-05 13:59 | RAD ---
LEFT FEMUR TWO VIEWS: 01/05/20 HISTORY: Left hip pain. FINDINGS/IMPRESSION: there are mild degenerative changes in the hip joint. The left femur is intact. There are mild degene rative changes in the knee joint. POS: [facility]
== END 2020-01-05 13:06 | disposition home or self-care (01) ==
LOC: BICRAD 13:05
PROVIDERS: ATTEND Family Medicine
DX: M25.552 Pain in left hip (principal); M79.605 Pain in left leg; M16.12 Unilateral primary osteoarthritis, left hip; M17.12 Unilateral primary osteoarthritis, left knee

== ENCOUNTER 2020-01-12 10:55 | Day surgery (SDC) | payer MEDICARE ==
[2020-01-12] MEDS ORDERED: Sodium Chloride 0.9% 20 ML ONE (11:14)
[2020-01-12] MEDS ORDERED: ADMIXTURE FEE SC SCH (12:15)
[2020-01-12] MEDS ORDERED: BORTEZOMIB SC SCH (12:15)
== END 2020-01-12 14:41 | disposition home or self-care (01) ==
LOC: ONC/OP 10:55
PROVIDERS: ATTEND Internal Medicine Medical Oncology
DX: C90.00 Multiple myeloma not having achieved remission (principal); N18.1 Chronic kidney disease, stage 1; Z88.8 Allergy status to other drugs, medicaments and biological substances; Z91.018 Allergy to other foods; Z91.048 Other nonmedicinal substance allergy status
CPT/HCPCS: 80053; 82248; 83615; 83883; 84100; 84165; 84550; 96375; 96413; J1100; J7050; J9041; J9070

== ENCOUNTER 2020-01-19 10:46 | Day surgery (SDC) | payer MEDICARE ==
[~2020-01-19 10:46] MED LIST changes: -ADMIXTURE FEE CHEMO SC SCH; +ADMIXTURE FEE SC SCH; +Cyclophosphamide 500 MG in Sodium Chloride 0.9% 250 ML 250 ML IVPB SCH
[2020-01-19] MEDS ORDERED: Sodium Chloride 0.9% 20 ML ONE (11:11)
[2020-01-19 11:43] VITALS: BP 133/87; TEMP 99.3
== END 2020-01-19 12:40 | disposition home or self-care (01) ==
LOC: ONC/OP 10:46
PROVIDERS: ATTEND Internal Medicine Medical Oncology
DX: Z51.11 Encounter for antineoplastic chemotherapy (principal); C90.00 Multiple myeloma not having achieved remission; N18.1 Chronic kidney disease, stage 1; Z91.018 Allergy to other foods; Z91.041 Radiographic dye allergy status
CPT/HCPCS: 96375; 96401; 96413; J1100; J7050; J9041; J9070

== ENCOUNTER 2020-01-26 10:32 | Day surgery (SDC) | payer MEDICARE ==
[~2020-01-26 10:32] MED LIST changes: -Cyclophosphamide 500 MG in Sodium Chloride 0.9% 250 ML 250 ML IVPB SCH
[2020-01-26 11:21] VITALS: BP 130/57; TEMP 98.2
== END 2020-01-26 13:22 | disposition home or self-care (01) ==
LOC: ONC/OP 10:32
PROVIDERS: ATTEND Internal Medicine Medical Oncology
DX: Z51.11 Encounter for antineoplastic chemotherapy (principal); C90.00 Multiple myeloma not having achieved remission; Z88.8 Allergy status to other drugs, medicaments and biological substances; Z91.018 Allergy to other foods; Z91.041 Radiographic dye allergy status
CPT/HCPCS: 96375; 96402; 96413; J1100; J7050; J9041; J9070

== ENCOUNTER 2020-02-02 10:37 | Day surgery (SDC) | payer MEDICARE ==
[~2020-02-02 10:37] MED LIST changes: +Cyclophosphamide 500 MG in Sodium Chloride 0.9% 250 ML 250 ML IVPB SCH
== END 2020-02-02 13:07 | disposition home or self-care (01) ==
LOC: ONC/OP 10:37
PROVIDERS: ATTEND Internal Medicine Medical Oncology
DX: C90.00 Multiple myeloma not having achieved remission (principal); N18.1 Chronic kidney disease, stage 1; Z88.8 Allergy status to other drugs, medicaments and biological substances; Z91.018 Allergy to other foods; Z91.041 Radiographic dye allergy status
CPT/HCPCS: 80053; 82248; 83615; 84100; 84165; 84550; 96401; 96413; J1100; J7050; J9041; J9070

== ENCOUNTER 2020-02-09 10:47 | Day surgery (SDC) | payer MEDICARE ==
[~2020-02-09 10:47] MED LIST changes: -CYCLOPHOSPHAMIDE IVPB SCH; -SODIUM CHLORIDE 0.9% IVPB SCH
[2020-02-09] MEDS ORDERED: Sodium Chloride 0.9% 20 ML ONE (10:58)
[2020-02-09 11:32] VITALS: BP 122/57; TEMP 97.9
== END 2020-02-09 13:03 | disposition home or self-care (01) ==
LOC: ONC/OP 10:47
PROVIDERS: ATTEND Internal Medicine Medical Oncology
DX: Z51.11 Encounter for antineoplastic chemotherapy (principal); C90.00 Multiple myeloma not having achieved remission; N18.1 Chronic kidney disease, stage 1; Z88.8 Allergy status to other drugs, medicaments and biological substances; Z91.018 Allergy to other foods; Z91.041 Radiographic dye allergy status
CPT/HCPCS: 96375; 96401; 96413; J1100; J7050; J9041; J9070

== ENCOUNTER 2020-02-16 10:31 | Day surgery (SDC) | payer MEDICARE ==
[2020-02-16 11:07] VITALS: BP 103/51; TEMP 98.3
== END 2020-02-16 13:14 | disposition home or self-care (01) ==
LOC: ONC/OP 10:31
PROVIDERS: ATTEND Internal Medicine Medical Oncology
DX: Z51.11 Encounter for antineoplastic chemotherapy (principal); C90.00 Multiple myeloma not having achieved remission; N18.1 Chronic kidney disease, stage 1; Z91.018 Allergy to other foods; Z91.041 Radiographic dye allergy status
CPT/HCPCS: 96375; 96401; 96413; J1100; J7050; J9041; J9070

== ENCOUNTER 2020-02-22 10:03 | Day surgery (SDC) | payer MEDICARE ==
[2020-02-22 12:32] VITALS: TEMP 97.7
== END 2020-02-22 14:57 | disposition home or self-care (01) ==
LOC: ONC/OP 10:03
PROVIDERS: ATTEND Internal Medicine Medical Oncology
DX: Z51.11 Encounter for antineoplastic chemotherapy (principal); C90.00 Multiple myeloma not having achieved remission; N18.1 Chronic kidney disease, stage 1; Z91.018 Allergy to other foods; Z91.041 Radiographic dye allergy status
CPT/HCPCS: 96375; 96401; 96413; J1100; J7050; J9041; J9070

== ENCOUNTER 2020-03-01 11:34 | Day surgery (SDC) | payer MEDICARE | END 2020-03-01 13:42 | disposition home or self-care (01) | LOC: ONC/OP 11:34 | PROVIDERS: ATTEND Internal Medicine Medical Oncology | DX: Z51.11 Encounter for antineoplastic chemotherapy (principal); C90.00 Multiple myeloma not having achieved remission; N18.1 Chronic kidney disease, stage 1 | CPT/HCPCS: 96375; 96401; 96413; J1100; J7050; J9041; J9070 ==

== ENCOUNTER 2020-03-15 10:55 | Day surgery (SDC) | payer MEDICARE ==
[~2020-03-15 10:55] MED LIST changes: +CYCLOPHOSPHAMIDE IVPB SCH; +SODIUM CHLORIDE 0.9% IVPB SCH
[2020-03-15] MEDS ORDERED: Sodium Chloride 0.9% 20 ML ONE (11:12)
== END 2020-03-15 12:29 | disposition home or self-care (01) ==
LOC: ONC/OP 10:55
PROVIDERS: ATTEND Internal Medicine Medical Oncology
DX: Z51.11 Encounter for antineoplastic chemotherapy (principal); C90.00 Multiple myeloma not having achieved remission; N18.1 Chronic kidney disease, stage 1; Z91.018 Allergy to other foods; Z91.041 Radiographic dye allergy status
CPT/HCPCS: 96375; 96401; 96413; J1100; J7050; J9041; J9070

== ENCOUNTER 2020-03-29 11:30 | Day surgery (SDC) | payer MEDICARE ==
[~2020-03-29 11:30] MED LIST changes: -Cyclophosphamide 500 MG in Sodium Chloride 0.9% 250 ML 250 ML IVPB SCH
[2020-03-29] MEDS ORDERED: Sodium Chloride 0.9% 20 ML ONE (11:53)
[2020-03-29 15:28] VITALS: BP 109/55; TEMP 98
== END 2020-03-29 15:30 | disposition home or self-care (01) ==
LOC: ONC/OP 11:30
PROVIDERS: ATTEND Internal Medicine Medical Oncology
DX: Z51.11 Encounter for antineoplastic chemotherapy (principal); C90.00 Multiple myeloma not having achieved remission; N18.1 Chronic kidney disease, stage 1; Z91.018 Allergy to other foods; Z91.041 Radiographic dye allergy status
CPT/HCPCS: 96375; 96401; 96413; J1100; J7050; J9041; J9070

== ENCOUNTER 2020-04-05 09:34 | Day surgery (SDC) | payer MEDICARE ==
[2020-04-05 10:04] VITALS: BP 117/70; TEMP 97.5
== END 2020-04-05 11:50 | disposition home or self-care (01) ==
LOC: ONC/OP 09:34
PROVIDERS: ATTEND Internal Medicine Medical Oncology
DX: Z51.11 Encounter for antineoplastic chemotherapy (principal); C90.00 Multiple myeloma not having achieved remission; N18.1 Chronic kidney disease, stage 1; Z91.018 Allergy to other foods; Z91.041 Radiographic dye allergy status
CPT/HCPCS: 80053; 82248; 83615; 84100; 84165; 84550; 96375; 96401; 96413; J1100; J7050; J9041; J9070

== ENCOUNTER 2020-04-19 09:25 | Day surgery (SDC) | payer MEDICARE ==
[~2020-04-19 09:25] MED LIST changes: -CYCLOPHOSPHAMIDE IVPB SCH; -Dexamethasone Sod Phosphate 40 MG in Sodium Chloride 0.9% 50 ML IVPB SCH; -SODIUM CHLORIDE 0.9% IVPB SCH
== END 2020-04-19 11:55 | disposition home or self-care (01) ==
LOC: ONC/OP 09:25
PROVIDERS: ATTEND Internal Medicine Medical Oncology
DX: Z51.11 Encounter for antineoplastic chemotherapy (principal); C90.00 Multiple myeloma not having achieved remission; N18.1 Chronic kidney disease, stage 1; Z88.8 Allergy status to other drugs, medicaments and biological substances; Z91.018 Allergy to other foods; Z91.041 Radiographic dye allergy status
CPT/HCPCS: 96401; J9041

== ENCOUNTER 2020-05-03 10:33 | Day surgery (SDC) | payer MEDICARE ==
[2020-05-03 14:25] VITALS: BP 133/63; TEMP 97.9
== END 2020-05-03 14:27 | disposition home or self-care (01) ==
LOC: ONC/OP 10:33
PROVIDERS: ATTEND Internal Medicine Medical Oncology
DX: Z51.11 Encounter for antineoplastic chemotherapy (principal); C90.00 Multiple myeloma not having achieved remission; N18.1 Chronic kidney disease, stage 1; Z91.018 Allergy to other foods; Z91.041 Radiographic dye allergy status
CPT/HCPCS: 96401; J9041

== ENCOUNTER 2020-05-21 14:50 | Day surgery (SDC) | payer MEDICARE ==
[~2020-05-21 14:50] MED LIST changes: +ADMIXTURE FEE CHEMO SC SCH; -ADMIXTURE FEE SC SCH; +Dexamethasone 4 MG TAB PO SCH; +Ondansetron ODT 8 MG TAB PO PRN; +valACYclovir 500 MG TAB PO SCH
== END 2020-05-21 16:12 | disposition home or self-care (01) ==
LOC: ONC/OP 14:50
PROVIDERS: ATTEND Internal Medicine Medical Oncology
DX: Z51.11 Encounter for antineoplastic chemotherapy (principal); C90.00 Multiple myeloma not having achieved remission; N18.1 Chronic kidney disease, stage 1; Z91.018 Allergy to other foods; Z91.041 Radiographic dye allergy status
CPT/HCPCS: 96372; J9041

== ENCOUNTER 2020-05-31 14:22 | Day surgery (SDC) | payer MEDICARE ==
[~2020-05-31 14:22] MED LIST changes: -Dexamethasone 4 MG TAB PO SCH; -Ondansetron ODT 8 MG TAB PO PRN; -valACYclovir 500 MG TAB PO SCH
== END 2020-05-31 15:02 | disposition home or self-care (01) ==
LOC: ONC/OP 14:22
PROVIDERS: ATTEND Internal Medicine Medical Oncology
DX: Z51.11 Encounter for antineoplastic chemotherapy (principal); C90.00 Multiple myeloma not having achieved remission; N18.1 Chronic kidney disease, stage 1; Z91.018 Allergy to other foods; Z91.041 Radiographic dye allergy status
CPT/HCPCS: 36415; 80053; 82248; 83615; 84100; 84165; 84550; 96372; J9041

== ENCOUNTER 2020-06-14 10:58 | Day surgery (SDC) | payer MEDICARE | END 2020-06-14 11:35 | disposition home or self-care (01) | LOC: ONC/OP 10:58 | PROVIDERS: ATTEND Internal Medicine Medical Oncology | DX: Z51.11 Encounter for antineoplastic chemotherapy (principal); C90.00 Multiple myeloma not having achieved remission; N18.1 Chronic kidney disease, stage 1; Z91.018 Allergy to other foods; Z91.041 Radiographic dye allergy status | CPT/HCPCS: 96401; J9041 ==

== ENCOUNTER 2020-06-28 11:00 | Day surgery (SDC) | payer MEDICARE ==
[~2020-06-28 11:00] MED LIST changes: +Dexamethasone 4 MG TAB PO SCH; +Ondansetron ODT 8 MG TAB PO PRN; +valACYclovir 500 MG TAB PO SCH
== END 2020-06-28 12:24 | disposition home or self-care (01) ==
LOC: ONC/OP 11:00
PROVIDERS: ATTEND Internal Medicine Medical Oncology
DX: Z51.11 Encounter for antineoplastic chemotherapy (principal); C90.00 Multiple myeloma not having achieved remission; N18.1 Chronic kidney disease, stage 1; Z88.8 Allergy status to other drugs, medicaments and biological substances; Z91.018 Allergy to other foods; Z91.041 Radiographic dye allergy status
CPT/HCPCS: 96401; J9041

== ENCOUNTER 2020-07-12 10:47 | Day surgery (SDC) | payer MEDICARE ==
[2020-07-12 11:11] VITALS: BP 125/60; TEMP 97.5
== END 2020-07-12 12:19 | disposition home or self-care (01) ==
LOC: ONC/OP 10:47
PROVIDERS: ATTEND Internal Medicine Medical Oncology
DX: Z51.11 Encounter for antineoplastic chemotherapy (principal); C90.00 Multiple myeloma not having achieved remission; N18.1 Chronic kidney disease, stage 1; Z88.8 Allergy status to other drugs, medicaments and biological substances; Z91.018 Allergy to other foods; Z91.041 Radiographic dye allergy status
CPT/HCPCS: 36415; 80053; 82248; 83615; 84100; 84165; 84550; 96401; J9041

== ENCOUNTER 2020-07-26 14:56 | Day surgery (SDC) | payer MEDICARE ==
[2020-07-26 15:26] LABS: #Lymphocytes 1.1 thou/uL (1.20-3.40); #Monocytes 0.3 thou/uL (0.11-0.59); #Neutrophils 1.5 thou/uL (1.40-6.50); %Basophils 0.3 % (0.0-1.0); %Eosinophils 0.6 % (0.0-10.0); %Lymphocytes 38.8 % (21.0-51.0); %Monocytes 9.1 % (0.0-10.0); %Neutrophils 51.3 % (42.0-75.0); Hemoglobin 12.6 g/dL (12.0-16.0); Mean Corpuscular HGB CONC 32.9 g/dL (32.0-36.0); Mean Corpuscular Hemoglobin 37.4 pg (27.0-31.0); Mean Platelet Volume 9.6 fL (7.4-10.4); Platelet Count 175 thou/uL (130-400); RBC Distribution Width 11.7 % (11.5-14.5); Red Blood Cell (RBC) Count 3.37 mill/uL (4.20-5.40)
[2020-07-26 15:34] VITALS: BP 182/77; TEMP 97.5
[2020-07-26 15:42] LABS: MDiff Complete? YES; Macrocytosis SLIGHT = 6-15 cells (100X) (0-5/hpf); Platelet Morphology Comment Appears Adequate
== END 2020-07-26 15:36 | disposition home or self-care (01) ==
LOC: ONC/OP 14:56
PROVIDERS: ATTEND Internal Medicine Medical Oncology
DX: Z51.11 Encounter for antineoplastic chemotherapy (principal); C90.00 Multiple myeloma not having achieved remission; N18.1 Chronic kidney disease, stage 1; Z91.018 Allergy to other foods; Z91.041 Radiographic dye allergy status
CPT/HCPCS: 85025; 96401; J9041

== ENCOUNTER 2020-08-23 09:53 | Day surgery (SDC) | payer MEDICARE | END 2020-08-23 11:28 | disposition home or self-care (01) | LOC: ONC/OP 09:53 | PROVIDERS: ATTEND Internal Medicine Hematology & Oncology | DX: Z51.11 Encounter for antineoplastic chemotherapy (principal); C90.00 Multiple myeloma not having achieved remission; N18.1 Chronic kidney disease, stage 1; Z91.018 Allergy to other foods; Z91.041 Radiographic dye allergy status | CPT/HCPCS: 96401; J9041 ==

== ENCOUNTER 2020-09-06 14:34 | Day surgery (SDC) | payer MEDICARE ==
[~2020-09-06 14:34] MED LIST changes: -Dexamethasone 4 MG TAB PO SCH; -Ondansetron ODT 8 MG TAB PO PRN; -valACYclovir 500 MG TAB PO SCH
== END 2020-09-06 14:58 | disposition home or self-care (01) ==
LOC: ONC/OP 14:34
PROVIDERS: ATTEND Internal Medicine Medical Oncology
DX: Z51.11 Encounter for antineoplastic chemotherapy (principal); C90.00 Multiple myeloma not having achieved remission; N18.1 Chronic kidney disease, stage 1; Z88.8 Allergy status to other drugs, medicaments and biological substances; Z91.018 Allergy to other foods; Z91.041 Radiographic dye allergy status
CPT/HCPCS: 96401; J9041

== ENCOUNTER 2020-09-20 10:54 | Day surgery (SDC) | payer MEDICARE ==
[~2020-09-20 10:54] MED LIST changes: +Dexamethasone 4 MG TAB PO SCH; +Ondansetron ODT 4 MG TAB PO SCH; +valACYclovir 500 MG TAB PO SCH
== END 2020-09-20 11:08 ==
LOC: ONC/OP 10:54
PROVIDERS: ATTEND Internal Medicine Medical Oncology
DX: Z51.11 Encounter for antineoplastic chemotherapy (principal); C90.00 Multiple myeloma not having achieved remission; N18.1 Chronic kidney disease, stage 1; Z91.018 Allergy to other foods; Z91.041 Radiographic dye allergy status
CPT/HCPCS: 96401; J9041

== ENCOUNTER 2020-12-13 11:01 | Day surgery (SDC) | payer MEDICARE, MEDICAID ==
[~2020-12-13 11:01] MED LIST changes: -Ondansetron ODT 4 MG TAB PO SCH
[2020-12-13 12:36] VITALS: BP 169/74
== END 2020-12-13 12:57 | disposition home or self-care (01) ==
LOC: ONC/OP 11:01
PROVIDERS: ATTEND Internal Medicine Medical Oncology
DX: Z51.11 Encounter for antineoplastic chemotherapy (principal); C90.00 Multiple myeloma not having achieved remission; N18.1 Chronic kidney disease, stage 1; Z91.018 Allergy to other foods; Z91.041 Radiographic dye allergy status
CPT/HCPCS: 96401; J9041

== ENCOUNTER 2020-12-27 11:30 | Day surgery (SDC) | payer MEDICARE, MEDICAID ==
[~2020-12-27 11:30] MED LIST changes: -valACYclovir 500 MG TAB PO SCH
[2020-12-27 12:29] VITALS: BP 201/82; TEMP 97.5
== END 2020-12-27 12:42 | disposition home or self-care (01) ==
LOC: ONC/OP 11:30
PROVIDERS: ATTEND Internal Medicine Medical Oncology
DX: Z51.11 Encounter for antineoplastic chemotherapy (principal); C90.00 Multiple myeloma not having achieved remission; N18.1 Chronic kidney disease, stage 1; Z91.018 Allergy to other foods; Z91.041 Radiographic dye allergy status
CPT/HCPCS: 96401; J9041

== ENCOUNTER 2021-01-10 10:48 | Day surgery (SDC) | payer MEDICARE, MEDICAID ==
[~2021-01-10 10:48] MED LIST changes: +valACYclovir 500 MG TAB PO SCH
[2021-01-10 11:37] VITALS: BP 158/68; TEMP 97.7
== END 2021-01-10 11:40 | disposition home or self-care (01) ==
LOC: ONC/OP 10:48
PROVIDERS: ATTEND Internal Medicine Medical Oncology
DX: Z51.11 Encounter for antineoplastic chemotherapy (principal); C90.00 Multiple myeloma not having achieved remission; N18.1 Chronic kidney disease, stage 1; Z91.018 Allergy to other foods; Z91.041 Radiographic dye allergy status
CPT/HCPCS: 36415; 80053; 82248; 83615; 84100; 84165; 84550; 96401; J9041

== ENCOUNTER 2021-01-24 10:51 | Day surgery (SDC) | payer MEDICARE, MEDICAID ==
[~2021-01-24 10:51] MED LIST changes: -Dexamethasone 4 MG TAB PO SCH; -valACYclovir 500 MG TAB PO SCH
== END 2021-01-24 11:58 | disposition home or self-care (01) ==
LOC: ONC/OP 10:51
PROVIDERS: ATTEND Internal Medicine Medical Oncology
DX: Z51.11 Encounter for antineoplastic chemotherapy (principal); C90.00 Multiple myeloma not having achieved remission; N18.1 Chronic kidney disease, stage 1; Z91.018 Allergy to other foods; Z91.041 Radiographic dye allergy status
CPT/HCPCS: 80053; 82248; 83615; 84100; 84165; 84550; 96401; J9041

== ENCOUNTER 2021-02-11 11:25 | Day surgery (SDC) | payer MEDICARE, MEDICAID ==
[~2021-02-11 11:25] MED LIST changes: +Dexamethasone 4 MG TAB PO SCH; +valACYclovir 500 MG TAB PO SCH
[2021-02-11 11:49] VITALS: BP 192/83; TEMP 98.2
== END 2021-02-11 13:28 | disposition home or self-care (01) ==
LOC: ONC/OP 11:25
PROVIDERS: ATTEND Internal Medicine Medical Oncology
DX: Z51.11 Encounter for antineoplastic chemotherapy (principal); C90.00 Multiple myeloma not having achieved remission; N18.1 Chronic kidney disease, stage 1; Z91.018 Allergy to other foods; Z91.041 Radiographic dye allergy status
CPT/HCPCS: 36415; 80053; 82248; 83615; 84100; 84165; 84550; 96401; J9041

== ENCOUNTER → 2021-02-28 | Day surgery (SDC) | payer MEDICARE, MEDICAID ==
[~2021-02-28] MED LIST changes: -Dexamethasone 4 MG TAB PO SCH; -valACYclovir 500 MG TAB PO SCH
[2021-02-28 12:35] VITALS: BP 171/73; TEMP 98.4
== END ==
LOC: ONC/OP 11:49
PROVIDERS: ATTEND Internal Medicine Medical Oncology
DX: Z51.11 Encounter for antineoplastic chemotherapy (principal); C90.00 Multiple myeloma not having achieved remission; N18.1 Chronic kidney disease, stage 1; Z91.018 Allergy to other foods; Z91.041 Radiographic dye allergy status
CPT/HCPCS: 96401; J9041

== ENCOUNTER 2021-05-09 14:13 | Day surgery (SDC) | payer MEDICARE, OTHER ==
[2021-05-09 14:29] VITALS: BP 132/58
== END 2021-05-09 14:30 ==
LOC: ONC/OP 14:13
PROVIDERS: ATTEND Internal Medicine Medical Oncology
DX: Z51.11 Encounter for antineoplastic chemotherapy (principal); C90.00 Multiple myeloma not having achieved remission; N18.1 Chronic kidney disease, stage 1; Z91.018 Allergy to other foods; Z91.041 Radiographic dye allergy status
CPT/HCPCS: 96401; J9041